=== PATIENT | male | born 1970 | race Caucasian/White ===

== ENCOUNTER → 2018-09-08 | Outpatient (CLI) | payer BC | LOC: RAD 09:32 | DX: R06.02 Shortness of breath (principal); Z88.0 Allergy status to penicillin ==

== ENCOUNTER → 2018-09-22 | Outpatient (CLI) | payer BC | LOC: RAD 08:08 | DX: R13.10 Dysphagia, unspecified (principal); Z88.0 Allergy status to penicillin ==